=== PATIENT | male | born 1980 | race Caucasian/White ===

== ENCOUNTER 2019-05-19 00:14 | Day surgery (SDC) | payer MEDICAID, SELFPAY ==
--- NOTE | 2019-02-15 17:11 | PM.SD ---
Same Day Admit/Disch: HPI History of Present Illness Chief complaint: Right Inguinal Hernia Narrative: Alfonso Flor is a 38 year old male that presented to the office at the request of Dr Coley for a hernia evaluation. Patient reports he first noticed a bulge in the right groin about 6 months ago. 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 Patient also reports he does work out regularly and he does notice pain at times just with different movements. Patient is otherwise healthy and has had no pervious surgeries. After office evaluation, he was found to have a reducible right inguinal hernia. He is taken to surgery now for repair under anesthesia. Exam Const: General: comfortable, no acute distress, alert and awake HENMT: Head: normocephalic and atraumatic Mouth: Yes oral mucosae normal Eyes: Conjunctivae: conjunctivae normal Pupils: PERRL EOM: EOM intact bilaterally Neck: Neck: normal visual inspection, no lymphadenopathy and nontender Resp: Effort & Inspection: normal respiratory effort Auscultation: clear to auscultation bilaterally Cardio: Rate: regular rate Rhythm: regular rhythm Heart sounds: no gallops, no murmurs and no rubs GI: Inspection: non-distended Palpation (GI): Yes soft, No tender, No hepatomegaly and No splenomegaly : Male General Exam: Yes hernia (Reducible right inguinal hernia) Penis: Yes normal penis Scrotum: scrotum normal and inguinal hernia on the right Testes: normal Skin: Lesions: no lesions Rashes: no rashes Neuro: General: no focal motor deficits and CN's II-XI intact bilaterally Cranial nerves: Yes PERRL, Yes EOM intact bilaterally, Yes facial symmetry and Yes tongue midline Speech: normal speech Motor exam (neuro): strength 5/5 throughout and no movement abnormalities noted Extrem: General: no clubbing, cyanosis or edema and edema Psych: Affect: normal affect Thought process: normal thought process Insight: insight good DS: Summary Time Spent with Patient Time attestation: Total time spent providing and/or coordinating discharge services: DS: Diagnosis Discharge Diagnosis (1) Reducible right inguinal hernia: Code(s): K40.90 - Unilateral inguinal hernia, without obstruction or gangrene, not specified as recurrent Status: Acute Assessment and Plan: We will proceed with repair of right inguinal hernia under local mac anesthesia.The procedure was discussed in detail including the use of mesh, general description, and usual course of recovery. Risks of recurrence, infection, postoperative bleeding, prolonged postoperative pain, and the possible need to return to surgery were discussed as well. All questions were answered. The patient agrees to go ahead. Discharge Plan Discharge Patient Disposition: Home, Self-Care Discharge Instructions: 1. May shower the day after surgery over incision(s). 2. Call office for: -Wound increasingly painful or bleeding -Vomiting -Fever of greater than 101 degrees 3. Expect some blood on dressing or on skin. 4. If no bowel movement for three days, take 1 oz. (30 ml) Milk of Magnesia; if no results, take Fleets enema. 5. No heavy lifting > 15-20 pounds for 2 weeks. 6. No driving for 3 days or while taking narcotic pain medications. 7. Ice to groin for 8 hours: 30 minutes on, 30 minutes off. Fresh ice every 2 hours 8. Up walking 10-30 minutes three times per day. 9. Resume previous home medications. 10. Follow-up 10-14 days in office for wound check or as previously scheduled. 11. Oral pain medications prescription to be sent home with patient. 12. NUTRITION: Start out by drinking fluids and increase your diet as tolerated. If you experience na
[2019-05-04 16:18] VITALS: BMI 27.6
--- NOTE | 2019-05-18 19:21 | PM.SD ---
Same Day Admit/Disch: HPI History of Present Illness Chief complaint: Right Inguinal Hernia Narrative: Alfonso Flor is a 39 year old male who noticed a right inguinal bulge last summer. He was seen in the office and found to have an inguinal hernia. It is getting larger and occasionally painful. 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 [facility] Past Medical History Medical History Anxiety Encounter for monitoring testosterone replacement therapy Gynecomastia, male Hypogonadism in male Insomnia Family History Family History Mother No problems noted. Father Essential (primary) hypertension Social History Social History Smoking status: Never smoker Alcohol intake: current Drinks per week: 1 Same Day Admit/Disch: Med Pre-admit Medications Home Medications Medication Instructions Recorded Confirmed Type multivitamin 1 tablet PO DAILY 05/04/19 05/19/19 History hydrocodone-acetaminophen 1 - 2 tablet PO Q6H PRN #10 tablet 05/19/19 Rx ketorolac 10 mg PO Q6H 4 Days #16 tablet 05/19/19 Rx Exam Const: General: comfortable, no acute distress, alert and awake HENMT: Head: normocephalic and atraumatic Mouth: Yes Normal oral and palatal mucosa present Eyes: Conjunctivae: conjunctivae normal Pupils: Equal, round and reactive pupils present EOM: EOMs intact bilaterally Neck: Neck: normal visual inspection, no lymphadenopathy and nontender Resp: Effort & Inspection: normal respiratory effort Auscultation: clear to auscultation bilaterally Cardio: Rate: regular rate Rhythm: regular rhythm Heart sounds: no gallops, no murmurs and no rubs GI: Inspection: non-distended GI Palp: Yes Soft to palpation, No Tenderness to palpation present (GI), No Hepatomegaly present and No Splenomegaly present : Male General Exam: Yes hernia (right inguinal bulge, pulses with cough, reducible) Penis: Yes normal penis Scrotum: scrotum normal Testes: Testes normal Skin: Lesions: no lesions Rashes: no rashes Neuro: General: no focal motor deficits and CN's II-XI intact bilaterally Cranial nerves: Yes Equal, round and reactive pupils present, Yes Bilaterally intact EOM present, Yes facial symmetry and Yes Midline tongue present Speech: normal speech Motor exam (neuro): 5/5 motor strength present throughout and Motor abnormalities not present Extrem: General: no clubbing, cyanosis or edema and edema Psych: Affect: normal affect Thought process: Normal thought process present Insight: Good insight present (Psych) DS: Summary Time Spent with Patient Time attestation: Total time spent providing and/or coordinating discharge services: DS: Diagnosis Discharge Diagnosis (1) Reducible right inguinal hernia: Code(s): K40.90 - Unilateral inguinal hernia, without obstruction or gangrene, not specified as recurrent Status: Chronic Assessment and Plan: After discussion, he is recommended to proceed with right inguinal hernia repair. The procedure, risks, benefits have been discussed. The likely use of mesh has been discussed. All questions were answered. He agrees to go ahead. Discharge Plan Discharge Patient Disposition: Home, Self-Care Discharge Instructions: 1. May shower the day after surgery over incision(s). 2. Call office for: -Wound increasingly painful or bleeding -Vomiting -Fever of greater than 101 degrees 3. Expect some blood on dressing or on skin. 4. If no bowel movement for three days, take 1 oz. (30 ml) Milk of Magnesia; if no results, take Fleets enema. 5. No heavy lifting > 15-20 pounds for 2 weeks. 6. No driving for 3 days or while taking narcotic pain medications. 7. Ice to groin for 8 hours: 30 minutes on, 30 minutes off. Fresh ice every 2 hours
[2019-05-19] VITALS (7 sets, daily range): BP systolic 104–150; BP diastolic 47–72; PULSE 69–90; RESP 18–20; TEMP 36.9; O2SAT 97–98
[2019-05-19] MEDS: LACTATED RINGERS 1,000 ML 30 ML IV CONT (06:45)
--- NOTE | 2019-05-19 06:49 | WPDHPUPDATE1 ---
History and Physical Update Update Date/Time: 05/19/19 06:49 History and Physical has been reviewed, including an updated exam of the patient. There are NO changes in the patient's condition. Risks, benefits, and alternatives have been discussed and questions answered. Patient agrees to proceed with procedure.
--- NOTE | 2019-05-19 07:06 | WPDANESEPPF ---
Anes - Initial Pre Proc Eval Procedure: Operation Date: 05/19/19 07:30 Proposed Procedures p Right Inguinal Hernia Repair - Efrain Brown MD Date/Time: 05/19/19 07:06 Surgeon: Efrain Brown MD Pre Op Diagnosis: Right Inguinal Hernia Patient Data Age: 39 Gender: M Height: 6 ft 2 in Weight: 97.8 kg Allergies Allergy/AdvReac Type Severity Reaction Status Date / Time No Known Allergies Allergy Verified 05/19/19 07:06 Home Medications Medication Instructions Recorded Confirmed Type multivitamin 1 tablet PO DAILY 05/04/19 05/04/19 History Patient hx anesthesia problems: none Family hx anesthesia problems: none PMFSH Past Medical History Medical History Anxiety Encounter for monitoring testosterone replacement therapy Gynecomastia, male Hypogonadism in male Insomnia Family History Family History Mother No problems noted. Father Essential (primary) hypertension Social History Social History Smoking status: Never smoker Alcohol intake: current Drinks per week: 1 Anes - Eval Final PreProcedure Day of Procedure 05/19/19 07:06 Patient weight: overweight Heart: regular rate and rhythm Lungs: clear to auscultation Airway: Mallampati scale class II Neurological: alert and oriented Last oral intake: >/= 8 hours ASA classification: II Emergent: no Anesthetic plan: proceed Anesthesia type and monitoring: general GIVS and standard monitoring Informed Consent: The patient's anesthetic plan and its attendant risks and benefits were discussed with the patient/family/POA. Questions were solicited and answers provided to the satisfaction of the patient/family/POA.
[2019-05-19] MEDS: ceFAZolin 2 GM/D5W 50 ML 2 GM/50 ML BAG IVPB (07:24)
--- NOTE | 2019-05-19 08:55 | PM.PROC ---
Procedure Note - Detailed Date of procedure: 05/19/19 Pre-op diagnosis: Right Inguinal Hernia Right inguinal hernia Post-op diagnosis: same (Indirect hernia) Procedure performed: Repair of right inguinal hernia with 6 cm Parietex hernia mesh system Description of procedure: The patient was taken to surgery and IV sedation was administered. The 6 groin and genitalia were prepped and draped. Proposed incision was marked on the skin. Local was infiltrated into the skin and the deeper subcutaneous tissues. Incision was made and deepened through the subcutaneous. Crossing veins were cauterized and divided. Dissection was carried through Bart's fascia down to the external oblique aponeurosis. The aponeurosis was exposed as was the external ring. Additional local anesthesia was infiltrated deep to the aponeurosis in the area of the spermatic cord and inguinal canal contents. The aponeurosis was opened laterally and extended medially through the external ring. The leaves of the aponeurosis were dissected free from the spermatic cord. The ileoinguinal nerve was carefully preserved throughout the dissection and was left attached to the spermatic cord. The cord was then mobilized medially on a Addis drain. The cord was dissected back to the internal ring. Dissection was then carried out in the anteromedial spermatic cord. The hernia sac was found and dissected free. The sac was opened so that I could place a finger within the hernia sac and facilitate this dissection. This opening was then closed with a running 3 0 Vicryl suture. The sac was then dissected back to a high dissection. It was dunked into the retroperitoneum. A 6 centimeter Parietex [place] was chosen. It was folded to form a plug. It was placed in the defect. The edges were sutured to the transversalis fascia with interrupted 3 0 Vicryl suture. The hernia defect was then partially closed with some additional 3 0 Vicryl suture. Patch was then cut to the appropriate size and placed over the inguinal canal floor. The lateral leaves were passed beyond the cord. The cord and ileoinguinal nerve were then laid over the patch. The external oblique aponeurosis was closed with interrupted 3 0 Vicryl suture. Bart's fascia was closed with interrupted 3 0 Vicryl suture. The subcutaneous was closed with interrupted 4 0 Vicryl suture. Four 0 Vicryl subcuticular skin sutures were placed. The skin was closed finally with a running 4 0 Monocryl skin suture. The wound was dressed with Exofin surgical adhesive. The patient was awakened and taken to recovery in good condition. Sponge and needle counts were correct x2. Anesthesia: MAC and local (0.5% Marcaine with Exparel) Surgeon: Efrain Brown MD Data Processing Control Clerk: Rashid Rivers RN,FA Estimated blood loss (mL): 5 Drains: No Packing: No Pathology: none sent Complications: None Condition: stable Disposition: PACU Findings: Indirect inguinal hernia. No sliding hernia was noted.
--- NOTE | 2019-05-19 10:35 | SUR.PHASEII ---
1000 pt ride not availabe until 11am
--- NOTE | 2019-05-19 11:22 | SUR.PHASEII ---
1122 still waiting on pt ride.
== END 2019-05-19 11:29 | disposition home or self-care (01) ==
PROVIDERS: PCP Internal Medicine; Visit Provider Surgery
PROC: (CPT 49505; principal; 2019-05-19 07:30)
DX: K40.90 Unilateral inguinal hernia, without obstruction or gangrene, not specified as recurrent (principal); F41.9 Anxiety disorder, unspecified; G47.00 Insomnia, unspecified
CPT/HCPCS: 49505; A9270; C1781; C9290; J0690; J2250; J2704; J3010; J7120

== ENCOUNTER 2020-06-12 13:57 | Outpatient (CLI) | payer OTHER, SELFPAY ==
--- NOTE | ~2020-06-12 | MMUS_ITS ---
EXAMINATION: MM diagnostic mammo unilat LT, US breast LT limited HISTORY: Palpable left breast mass TECHNIQUE: Additional 3-D tomosynthesis images of the left breast were performed and synthetic 2-D im ages were generated. CAD analysis was submitted and interpreted. High resolution Limited left breast ultrasound was performed. COMPARISON: Comparison to multiple prior studies sequentially, with oldest reviewed study dated 03/01. BREAST PARENCHYMAL COMPOSITION: The breasts are heterogenously dense, which may obscure small masses. FINDINGS: MAMMOGRAPHIC FINDINGS: There is bilateral asymmetric gynecomastia, left greater than right. There is a subareolar mass in th e left breast which is indicated by triangular radiopaque marker. No suspicious calcifications or arc hitectural distortion. ULTRASOUND: Limited left breast ultrasound: In the subareolar location of the left breast there is a slightly irr egular shaped hypoechoic mass measuring 2.6 x 1.8 x 0.8 cm with internal vascularity. No significant posterior features. Parallel orientation. Internal echotexture is somewhat heterogeneous. This mass m easured 1.9 x 0.8 x 1.9 cm on prior examination dated 03/28/2017. IMPRESSION: 1. Slight interval enlargement of the subareolar left breast mass. 2. Ultrasound-guided left breast biopsy recommended. BI-RADS category 4, suspicious findings. Reviewed, dictated and finalized at location A. IMPRESSION: 1. Slight interval enlargement of the subareolar left breast mass. 2. Ultrasound-guided left breast biopsy recommended. BI-RADS category 4, suspicious findings.
== END 2020-06-12 13:58 | disposition home or self-care (01) ==
LOC: ANHIMG 13:58
PROVIDERS: PCP Internal Medicine; Visit Provider Internal Medicine
DX: N63.0 Unspecified lump in unspecified breast (principal); R92.8 Other abnormal and inconclusive findings on diagnostic imaging of breast
CPT/HCPCS: 76642; 77065

== ENCOUNTER 2020-06-23 13:14 | Outpatient (CLI) | payer OTHER, SELFPAY ==
--- NOTE | ~2020-06-23 | US_ITS ---
EXAMINATION: Consultation US INDICATION: Patient presents for biopsy of the left breast mass. TECHNIQUE: Limited high-resolution left breast ultrasound is performed in the subareolar region. COMPARISON: 06/12/2020, 06/03/2018, 03/28/2017 FINDINGS: Comparison with prior ultrasound imaging demonstrates little significant change in the suba reolar left breast mass, most consistent with gynecomastia. This was discussed with the patient and a course of clinical follow-up was agreed upon, rather than biopsy, with an understanding that future biopsy could be necessary if clinical examination becomes concerning. IMPRESSION: 1. Ultrasound findings consistent with gynecomastia. Reviewed, dictated and finalized at location A.
== END 2020-06-23 13:15 | disposition home or self-care (01) ==
PROVIDERS: PCP Internal Medicine; Visit Provider Internal Medicine
DX: N62 Hypertrophy of breast (principal)
CPT/HCPCS: 99199

== ENCOUNTER 2020-07-13 10:25 | Outpatient (CLI) | payer OTHER, SELFPAY ==
--- NOTE | ~2020-07-13 | MMUS_ITS ---
MM post biopsy invasive LT, US breast biopsy LT w image 07/13/2020 11:27 (accession [id number]), 07/13/2020 11:16 (accession [id number]) EXAMINATION: US GUIDED NEEDLE BIOPSY WITH VACUUM ASSISTANCE DATE: 07/13/2020 11:30 CDT INDICATION: Left breast mass is palpable and identified on ultrasound and mammography.. Ultrasound-g uided core biopsy is requested to evaluate for malignancy. TECHNIQUE AND FINDINGS: The risks and potential benefits of the procedure were discussed with the patient, and written inform ed consent was obtained. After sterile preparation of the left breast, 1% lidocaine was utilized for local anesthesia. 1% lidocaine with epinephrine was used for deep anesthesia. A 10G vacuum-assisted biopsy gun needle was advanced through to the outer edge of the region of inter est from a superior approach utilizing sonographic guidance. A total of three tissue core samples we re obtained through the lesion, located in the subareolar location. An Inrad tissue marker clip was then placed at the biopsy site. Hemostasis was achieved. The patient tolerated procedure well and there was no evidence of immediate complication. The patien t was given verbal instructions partly is from the department. Left breast mammograms to document ti ssue marker clip placement. The tissue samples were submitted to surgical pathology for histologic an alysis. IMPRESSION: 1. Successful ultrasound-guided vacuum-assisted biopsy of left breast mass in the subareolar locatio n with tissue marker placement. Please refer to pathology report for histologic analysis. Reviewed, dictated and finalized at location A. IMPRESSION: 1. Successful ultrasound-guided vacuum-assisted biopsy of left breast mass in the subareolar location with tissue marker placement. Please refer to pathology report for histologic analysis.
== END 2020-07-13 10:26 | disposition home or self-care (01) ==
PROVIDERS: PCP Internal Medicine; Visit Provider Internal Medicine
DX: N63.0 Unspecified lump in unspecified breast (principal)
CPT/HCPCS: 19083; 88305; A4648

== ENCOUNTER → 2020-09-11 03:00 | Outpatient (CLI) | payer OTHER, SELFPAY ==
[2020-09-11 17:43] LABS: SARS-CoV-2 RNA PCR Negative
== END ==
PROVIDERS: PCP Internal Medicine; Visit Provider Surgery
DX: Z01.812 Encounter for preprocedural laboratory examination (principal); Z20.822 Contact with and (suspected) exposure to COVID-19
CPT/HCPCS: 36415; 86850; 86900; 86901; C9803; U0003; U0005

== ENCOUNTER 2020-09-11 09:46 | Outpatient (CLI) | payer OTHER, SELFPAY | END 2020-09-11 09:47 | disposition home or self-care (01) | PROVIDERS: PCP Internal Medicine; Visit Provider Surgery | DX: K40.91 Unilateral inguinal hernia, without obstruction or gangrene, recurrent (principal); Z01.818 Encounter for other preprocedural examination | CPT/HCPCS: 36415; 86850; 86900; 86901 ==

== ENCOUNTER 2020-09-14 01:56 | Day surgery (SDC) | payer OTHER, SELFPAY ==
[2020-09-01 15:30] VITALS: BMI 15.4
[2020-09-14] VITALS (10 sets, daily range): BP systolic 128–159; BP diastolic 49–75; PULSE 64–87; RESP 11–16; TEMP 36.6–36.9; O2SAT 97–100
[2020-09-14] MEDS: ACETAMINOPHEN 500 MG TABLET 1000 MG PO (10:24)
[2020-09-14] MEDS: KETOROLAC 15 MG/ML VIAL (*BKC) IV PUSH (10:25)
[2020-09-14] MEDS: LACTATED RINGERS 1,000 ML 30 ML IV CONT ×3 (10:26→16:01)
--- NOTE | 2020-09-14 11:43 | WPDANESEPPF ---
Anes - Initial Pre Proc Eval Procedure: Operation Date: 09/14/20 12:00 Proposed Procedures p Robotic Assisted Laparoscopic Recurrent Right Inguinal Hernia Repair - Tammi Toro MD Date/Time: 09/14/20 11:43 Surgeon: Tammi Toro MD Pre Op Diagnosis: recurrent right inguinal hernia Patient Data Age: 40 Gender: M Height: 6 ft 2 in Weight: 96 kg Last Vital Signs Temp 97.8 F 09/14/20 10:00 Pulse 84 09/14/20 10:00 Resp 16 09/14/20 10:00 BP 130/73 09/14/20 10:00 Pulse Ox 98 09/14/20 10:00 Allergies Allergy/AdvReac Type Severity Reaction Status Date / Time No Known Allergies Allergy Verified 09/14/20 10:42 Home Medications Medication Instructions Recorded Confirmed Type syringe with needle 3 mL 23 gauge See Rx Instructions .ROUTE 02/07/20 09/01/20 Rx x 1 /2 .COMPLEX #12 ea testosterone cypionate 200 mg/mL 160 mg IM WEEKLY #12 ml 07/12/20 09/14/20 Rx intramuscular oil Patient hx anesthesia problems: none Family hx anesthesia problems: none PMFSH Past Medical History Medical History Anxiety Encounter for monitoring testosterone replacement therapy Gynecomastia, male Hypogonadism in male Insomnia Surgical History Surgical History H/O hernia repair S/P excision of lipoma Family History Family History Mother No problems noted. 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 Questions were solicited and answers provided to the satisfaction of the patient/family/POA.
--- NOTE | 2020-09-14 11:53 | WPDHPUPDATE1 ---
History and Physical Update Update Date/Time: 09/14/20 11:53 History and Physical has been reviewed, including an updated exam of the patient. There are NO changes in the patient's condition. Risks, benefits, and alternatives have been discussed and questions answered. Patient agrees to proceed with procedure.
[2020-09-14] MEDS: ceFAZolin 2 GM/D5W 50 ML 2 GM/50 ML BAG IVPB (12:17)
[2020-09-14] MEDS: BUPIVACAINE/EPINEPHRINE 0.5% 10 ML VIAL 30 ML INFILTRATE (12:45)
--- NOTE | 2020-09-14 13:55 | P.OP_ITS ---
Procedure Note - Detailed Date of Procedure 09/14/20 Pre-op Diagnosis recurrent right inguinal hernia Post-op Diagnosis same Procedure Performed Robotic assisted repair recurrent right inguinal hernia with mesh Surgeon Tammi Toro MD Anesthesia general Indications 40-year-old male with recurrent right inguinal hernia. Patient had previous open repair in May of 2019 Findings recurrent indirect right inguinal hernia incarcerated with cecum Description of Procedure Patient was brought into the operating room and placed in the supine position. After adequate induction of general anesthesia, the patient was prepped and draped in normal sterile fashion. A time-out was then done to verify the patient's identity, as well as the procedure being performed. Began by making a 8 mm incision in the supraumbilical region, a Veress needle was then placed into the peritoneal cavity. CO2 gas was then insufflated and after adequate pneumoperitoneum was achieved, the Veress needle was removed. I then placed an 8 mm trocar through this incision. I then placed the endoscope through this trocar site and under direct visualization placed 2 further 8 mm ports in the right and left mid abdomen. The [employer] robot was then docked to the 3 trocar sites. I then scrubbed out and went to the robotic console. Upon examining the pelvis, it was noted that the patient had a incarcerated right inguinal hernia with cecum. The left side was examined and no hernia defect was noted. I was able to reduce the cecum with gentle retraction out of the hernia. Once this was done, I began by making a preperitoneal flap approximately 6 cm superior to the defect. This flap was carried medially past the umbilical ligaments in laterally to the transversalis. It then began dissection of my medial compartment taking this down to the pubic tubercle. I then began the lateral dissection taking this down to the transversalis fascia. Once these compartments were achieved, I began dissection around the cord structures. There was a noted previously placed mesh plug in the indirect space. It was noted that lateral to the plug that the patient had a recurrent indirect hernia. Using careful dissection, was able to reduce indirect hernia sac off the cord structures. Once this was adequately done, I went ahead and placed a 15 x 10 piece of Pro [employer] Commissioning Technician mesh into the abdominal cavity. The mesh was carefully positioned, centering the center of the mesh over the indirect defect. Once this was done, was very satisfied with our repair. I then closed the peritoneal flap with a running 2.0 V Lock suture. The abdomen was then desufflated, and all ports were removed. All incisions were then closed with the 4.0 monocryl suture. Dermabond was placed on each wound. The patient tolerated the procedure well, was extubated in the operating room postoperatively, and will now be transferred to the recovery room in stable condition. Implants 15 x 10 Pro Wind Commissioning Technician mesh Estimated Blood Loss 5 Drains No Packing No Pathology none sent Complications No immediate complications Condition stable Disposition PACU
[2020-09-14] MEDS: fentaNYL CITRATE INJ (*CRX) 100 MCG/2 ML VIAL 25 MCG IV PUSH ×6 (14:18→16:13)
[2020-09-14] MEDS: oxyCODONE HCL (*CRX) 5 MG TAB IR PO (15:20)
[2020-09-14] MEDS: ONDANSETRON INJ 4 MG/2 ML VIAL IV PUSH (15:55)
== END 2020-09-14 16:48 | disposition home or self-care (01) ==
PROVIDERS: PCP Internal Medicine; Visit Provider Surgery
PROC: 8E0Y4CZ Robotic Assisted Procedure of Lower Extremity, Percutaneous Endoscopic Approach (ICD-10-PCS; CPT 49650; principal; 2020-09-14 12:00)
DX: K40.31 Unilateral inguinal hernia, with obstruction, without gangrene, recurrent (principal); E29.1 Testicular hypofunction; Z72.0 Tobacco use
CPT/HCPCS: 49651; S2900; A9270; C1781; J0690; J1100; J1170; J1885; J2250; J2370; J2405; J2704; J3010; J7030; J7120

== ENCOUNTER 2020-09-22 12:41 | Outpatient (CLI) | payer OTHER, SELFPAY ==
[2020-09-22 13:21] LABS: Hematocrit 48.9 % (42.0-52.0); Hemoglobin 16.3 g/dL (14.0-18.0); Mean Corpuscular HGB Conc 33.3 g/dl (32-36); Mean Corpuscular Hemoglobin 31.2 pg (26-34); Mean Corpuscular Volume 93.5 fl (80-100); Mean Platelet Volume 8.7 fl (7.4-10.4); Platelet Count Result 368 k/mm3 (150-375); Red Blood Count 5.23 M/mm3 (4.6-6.20); Red Cell Distribution Width 12.7 % (11.5-14.5); White Blood Count 8.4 K/mm3 (4.5-10.0)
[2020-09-22 13:40] LABS: Alanine Aminotransferase 63 U/L (4-50); Alkaline Phosphatase 40 U/L (38-126); Anion Gap 8 mmol/L (8-16); Aspartate Amino Transferase 40 U/L (17-59); Bilirubin,Total 0.1 mg/dL (0.2-1.3); Blood Urea Nitrogen 18 mg/dL (9-20); Calcium 8.8 mg/dL (8.4-10.2); Carbon Dioxide 27 mmol/L (22-30); Chloride 106 mmol/L (98-107); Estimated Glomerular Filt Rate > 60; Glucose 94 mg/dL (75-110); Potassium 4.1 mmol/L (3.4-5.0); Sodium 141 mmol/L (137-145)
== END 2020-09-22 12:42 | disposition home or self-care (01) ==
PROVIDERS: PCP Internal Medicine; Visit Provider Surgery
DX: G89.18 Other acute postprocedural pain (principal)
CPT/HCPCS: 36415; 80053; 85027